=== PATIENT | male | born 2000 | race Caucasian/White ===

== ENCOUNTER 2018-06-03 19:44 | Emergency (ER) | payer OTHER ==
[~2018-06-03] VITALS: Ht 182.9 cm; Wt 81.7 kg
[2018-06-03] MEDS ORDERED: AMOXICILLIN500 MG PO (20:58)
== END 2018-06-03 21:20 | disposition home or self-care (01) ==
LOC: ED 19:44
DX: S01.512A Laceration without foreign body of oral cavity, initial encounter (principal); S01.511A Laceration without foreign body of lip, initial encounter; W22.8XXA Striking against or struck by other objects, initial encounter; J45.909 Unspecified asthma, uncomplicated
CPT/HCPCS: 99282

== ENCOUNTER 2021-11-02 19:03 | Emergency (ER) | payer OTHER ==
[~2021-11-02] VITALS: Ht 182.9 cm; Wt 81.7 kg
[~2021-11-02 19:03] MED LIST: AMOXICILLIN500 MG PO
[2021-11-02] MEDS ORDERED: HYDROCODON-ACE1 EA10 PO (21:29)
== END 2021-11-02 22:00 | disposition home or self-care (01) ==
LOC: ED 19:03
DX: S06.0X9A Concussion with loss of consciousness of unspecified duration, initial encounter (principal); S12.600A Unspecified displaced fracture of seventh cervical vertebra, initial encounter for closed fracture; S43.101A Unspecified dislocation of right acromioclavicular joint, initial encounter; J45.909 Unspecified asthma, uncomplicated; Z79.899 Other long term (current) drug therapy; V86.99XA Unspecified occupant of other special all-terrain or other off-road motor vehicle injured in nontraffic accident, initial encounter
CPT/HCPCS: 70450; 71046; 72125; 73030; 80053; 81001; 82150; 83690; 85025; 96374; 96375; 96376; 99284-25; J1170; J2405; J7030